=== PATIENT | female | born 1955 | race Caucasian/White ===

== ENCOUNTER 2016-12-23 10:19 | Inpatient (IN) | payer MEDICARE, OTHER ==
[~2016-12-23] VITALS: Ht 165.1 cm; Wt 72.6 kg
[2016-12-23 10:40] VITALS: BP 125/78
--- NOTE | 2016-12-23 11:24 | NUR ---
Pt arrived on unit via gurney accompanied by EMS staff and . Dx: Dementia w BD. Per , pt is deaf and uses a white board to communicate. Pt calm, smiling. Belongings inventoried and VS taken. given tour of unit. Pt currently sitting quietly in wc in dayroom. Will continue to monitor.
[2016-12-23] MEDS ORDERED: MAG HYDROX/AL HYDROX/SIMETH 30 ML ORAL.SUSP PO PRN (11:30)
[2016-12-23] MEDS ORDERED: ACETAMINOPHEN 325 MG TABLET PO PRN (11:30)
[2016-12-23] MEDS ORDERED: METHYL SALICYLATE/MENTHOL TOPICAL OINTMENT 29GM TUBE. TP PRN (11:30)
[2016-12-23] MEDS ORDERED: MAGNESIUM HYDROXIDE 2,400 MG/30 ML ORAL.SUSP. PO PRN (11:30)
[2016-12-23] MEDS ORDERED: LORazepam 0.5 MG TABLET PO PRN (12:30)
--- NOTE | 2016-12-23 13:00 | NUR ---
SW met with pt one on one in hallway, SW used a white board to communicate pt was crying uncontrollably. She able to answer questions, however states its 2013, and she was in a custodial. SW corrected her to see if that would help pt, however it did not and pt was very upset and tearful throughout. Pt at one point wheeled past SW and kept going down the ibrahim in her wheelchair.
[2016-12-23] MEDS ORDERED: LORA0.5T PO (13:14)
[2016-12-23] MEDS ORDERED: DEXT1CAP PO (13:14)
[2016-12-23] MEDS ORDERED: MAGN400T3 PO (13:14)
[2016-12-23] MEDS ORDERED: QUET25TA5 PO (13:14)
[2016-12-23] MEDS ORDERED: CEPH500T PO (13:14)
[2016-12-23] MEDS ORDERED: LACO200T PO (13:14)
[2016-12-23] MEDS ORDERED: ESCI20TA PO (13:14)
[2016-12-23] MEDS ORDERED: LEVO125T5 PO (13:14)
[2016-12-23] MEDS ORDERED: OXYB5TAB7 PO (13:14)
[2016-12-23] MEDS ORDERED: QUET50TA5 PO (13:14)
[2016-12-23] MEDS ORDERED: DANT25CA PO (13:14)
[2016-12-23] MEDS ORDERED: CYAN10005 PO (13:14)
[2016-12-23] MEDS ORDERED: ASPI-630 PO (13:14)
[2016-12-23] MEDS ORDERED: LAMO100T PO (13:14)
[2016-12-23] MEDS ORDERED: LOSA1TAB18 PO (13:14)
[2016-12-23] MEDS ORDERED: POTA10CA PO (13:14)
[2016-12-23] MEDS ORDERED: DILT240C2 PO (13:14)
[2016-12-23] MEDS ORDERED: ATOR10TA60 PO (13:14)
[2016-12-23 14:49] LABS: BASO % 0 % (0-3); EOS # 0.2 x10^3/uL (0.0-0.7); EOS % 2 % (0-3); HEMATOCRIT 38.5 % (36.0-47.0); HEMOGLOBIN 12.8 g/dL (12.0-15.5); LYMPH # 0.7 x10^3/uL (1.0-4.8); LYMPH % 10 % (24-48); MEAN CORPUSCULAR HEMOGLOBIN 31 pg (25-35); MEAN CORPUSCULAR HGB CONC 33 g/dL (31-37); MEAN CORPUSCULAR VOLUME 93 fL (79-100); MONO # 0.4 x10^3/uL (0.0-1.1); MONO % 6 % (0-9); NEUT # 5.8 x10^3uL (1.8-7.7); NEUT % 81 % (31-73); PLATELET COUNT 193 x10^3/uL (140-400); RED BLOOD COUNT 4.14 x10^6/uL (3.50-5.40); RED CELL DISTRIBUTION WIDTH 14.5 % (11.5-14.5); WHITE BLOOD COUNT 7.2 x10^3/uL (4.0-11.0)
[2016-12-23 14:55] LABS: ALBUMIN 3.6 g/dL (3.4-5.0); CALCIUM 9.3 mg/dL (8.5-10.1); MAGNESIUM 2.1 mg/dL (1.8-2.4); POTASSIUM 3.9 mmol/L (3.5-5.1); TOTAL BILIRUBIN 0.3 mg/dL (0.2-1.0); TOTAL PROTEIN 7.3 g/dL (6.4-8.2)
[2016-12-23 15:29] VITALS: BP 141/82
--- NOTE | 2016-12-23 15:36 | NUR ---
Joshua GALLAGHER called [facility] as SW rec'd e mail from Registration stating pt Primary insurance is [facility]. AILEEN called and spent and hour and half on phone with Sanna. Facility out of network, AILEEN faxed information to [facility] at [phone] spoke with Ary [phone] at [facility]. Pt meets criteria per Sanna. AILEEN called pt he is not working Medicare primary for both him and pt. AILEEN called [facility] back and spoke with Clinical rep Radha reports no auth or notification needed when [facility] is secondary, they are unable to tell if secondary unless pt has Both Medicare and secondary through their insurance. Per her no auth needed, and note was noted in their system. AILEEN called back, he would like to talk about billing AILEEN called billing [id number] no one answered AILEEN called x 2. AILEEN called pt back informed him of this. AILEEN suggested pt call his insurance regarding billing questions. AILEEN gave pt contact information for main number to call if he had any further questions.
[2016-12-23] MEDS: CEPHALEXIN 500 MG CAPSULE PO SCH ×2 (16:10→20:31)
[2016-12-23] MEDS: DANTROLENE SODIUM 25 MG CAPSULE PO SCH ×2 (16:10→20:37)
[2016-12-23] MEDS: OXYBUTYNIN CHLORIDE 5 MG TABLET PO SCH (20:31)
[2016-12-23] MEDS: QUEtiapine 50 MG TABLET. PO SCH (20:31)
[2016-12-23] MEDS: ATORVASTATIN CALCIUM 10 MG TABLET. PO SCH (20:31)
[2016-12-23] MEDS: LACOSAMIDE 50 MG TABLET PO SCH (20:31)
[2016-12-23] MEDS: lamoTRIgine 100 MG TABLET. PO SCH (20:31)
[2016-12-23] MEDS: POTASSIUM CHLORIDE 10 MEQ CAPSULE.ER. PO SCH (20:31)
[2016-12-23] MEDS: DEXTROMETHORPHAN HBR/QUINIDINE 1 CAPSULE. PO SCH (20:37)
--- NOTE | 2016-12-23 20:59 | PDOC ---
Exam Scott Demential Exam: Scott Note: Please also refer to the separate dictated note~for this date of service dictated separately.~Patient seen individually. Discussed the patient with Nursing staff reviewed the chart.~Reviewed interim history and current functioning. Reviewed vital signs,~Labs/ Radiology~and current medications noted below. Continue current treatment with the changes noted in the dictated addendum note Assessment: Vital Signs: Vital Signs Date Time Temp Pulse Resp B/P (MAP) Pulse Ox O2 Delivery O2 Flow Rate FiO2 12/23/16 15:29 98.3 68 20 141/82 (101) 99 12/23/16 10:40 Room Air Labs: Laboratory Tests Test 12/23/16 14:25 White Blood Count 7.2 x10^3/uL (4.0-11.0) Red Blood Count 4.14 x10^6/uL (3.50-5.40) Hemoglobin 12.8 g/dL (12.0-15.5) Hematocrit 38.5 % (36.0-47.0) Mean Corpuscular Volume 93 fL (79-100) Mean Corpuscular Hemoglobin 31 pg (25-35) Mean Corpuscular Hemoglobin Concent 33 g/dL (31-37) Red Cell Distribution Width 14.5 % (11.5-14.5) Platelet Count 193 x10^3/uL (140-400) Neutrophils (%) (Auto) 81 % (31-73) H Lymphocytes (%) (Auto) 10 % (24-48) L Monocytes (%) (Auto) 6 % (0-9) Eosinophils (%) (Auto) 2 % (0-3) Basophils (%) (Auto) 0 % (0-3) Neutrophils # (Auto) 5.8 x10^3uL (1.8-7.7) Lymphocytes # (Auto) 0.7 x10^3/uL (1.0-4.8) L Monocytes # (Auto) 0.4 x10^3/uL (0.0-1.1) Eosinophils # (Auto) 0.2 x10^3/uL (0.0-0.7) Basophils # (Auto) 0.0 x10^3/uL (0.0-0.2) Sodium Level 142 mmol/L (136-145) Potassium Level 3.9 mmol/L (3.5-5.1) Chloride Level 106 mmol/L (98-107) Carbon Dioxide Level 28 mmol/L (21-32) Anion Gap 8 (6-14) Blood Urea Nitrogen 21 mg/dL (7-20) H Creatinine 1.0 mg/dL (0.6-1.0) Estimated GFR (Cockcroft-Gault) 56.0 BUN/Creatinine Ratio 21 (6-20) H Glucose Level 128 mg/dL (70-99) H Calcium Level 9.3 mg/dL (8.5-10.1) Magnesium Level 2.1 mg/dL (1.8-2.4) Total Bilirubin 0.3 mg/dL (0.2-1.0) Aspartate Amino Transferase (AST) 19 U/L (15-37) Alanine Aminotransferase (ALT) 22 U/L (14-59) Alkaline Phosphatase 171 U/L (46-116) H Total Protein 7.3 g/dL (6.4-8.2) Albumin 3.6 g/dL (3.4-5.0) Albumin/Globulin Ratio 1.0 (1.0-1.7) Current Medications: Meds: Current Medications Acetaminophen (Tylenol) 650 mg PRN Q6HRS PRN PO PAIN / TEMP; Start 12/23/16 at 11:30 Multi-Ingredient Ointment (Analgesic [place]) 1 rosie PRN QID PRN TP MUSCLE PAIN; Start 12/23/16 at 11:30 Al Hydroxide/Mg Hydroxide (Mylanta Plus Xs) 15 ml PRN AFTMEALHC PRN PO DYSPEPSIA; Start 12/23/16 at 11:30 Magnesium Hydroxide (Milk Of Magnesia) 2,400 mg PRN QHS PRN PO CONSTIPATION; Start 12/23/16 at 11:30 Aspirin (Children'S Aspirin) 81 mg DAILY PO ; Start 12/24/16 at 09:00 Atorvastatin Calcium (Lipitor) 10 mg QHS PO Last administered on 12/23/16t 20: 31; Start 12/23/16 at 21:00 Cyanocobalamin (Vitamin B-12) 1,000 mcg DAILY PO ; Start 12/24/16 at 09:00 Diltiazem HCl (Cardizem 24hr Cd) 240 mg DAILY PO ; Start 12/24/16 at 09:00 Escitalopram Oxalate (Lexapro) 20 mg DAILY PO ; Start 12/24/16 at 09:00 Lamotrigine (LaMICtal) 100 mg BID PO Last administered on 12/23/16 20:31; Start 12/23/16 at 21:00 Levothyroxine Sodium (Synthroid) 125 mcg DAILYAC PO ; Start 12/24/16 at 07:30 Lorazepam (Ativan) 0.5 mg PRN TID PRN PO ANXIETY / AGITATION; Start 12/23/16 at 12:30 Magnesium Oxide (Magnesium Oxide) 400 mg DAILY PO ; Start 12/24/16 at 09:00 Oxybutynin Chloride (Ditropan) 5 mg QHS PO Last administered on 12/23/16 20:31 ; Start 12/23/16 at 21:00 Potassium Chloride (Micro-K) 10 meq BID PO Last administered on 12/23/16 20:31 ; Start 12/23/16 at 21:00 Quetiapine Fumarate (SEROquel) 25 mg DAILY PO ; Start 12/24/16 at 09:00 Quetiapine Fumarate (SEROquel) 50 mg QHS PO Last administered on 12/23/16 20: 31; Start 12/23/16 at 21:00 Cephalexin HCl (Keflex) 500 mg QID PO Last administered on 12/23/16 20:31; Start 12/23/16 at 17:00 Dantrolene Sodium (Dantrium) 25 mg TID PO Last administered on 12/23/16 20:37 ; Start 12/23/16 at 14:00 Lacosamide (Vimpat) 200 mg BID PO Last administered on 12/23/16 20:31; Start 12/23/16 at 21:00 Losartan Potassium (Cozaar) 100 mg DAILY PO ; Start 12/24/16 at 09:00 Hydrochlorothiazide (Microzide) 12.5 mg DAILY PO ; Start 12/24/16 at 09:00 Active Scripts Active Reported Lorazepam 0.5 Mg Tablet 0.5 Mg PO PRN TID PRN Cephalexin 500 Mg Tablet 500 Mg PO QID Losartan-Hctz 100-12.5 Mg Tab (Losartan/Hydrochlorothiazide) 1 Each Tablet 1 Each PO DAILY Seroquel (Quetiapine Fumarate) 50 Mg Tablet 50 Mg PO QHS Seroquel (Quetiapine Fumarate) 25 Mg Tablet 25 Mg PO DAILY Nuedexta 20-10 Mg Capsule (Dextromethorphan Hbr/Quinidine) 1 Each Capsule 1 Each PO BID Vimpat (Lacosamide) 200 Mg Tablet 200 Mg PO BID Levothyroxine Sodium 125 Mcg Tablet 125 Mcg PO DAILYAC Dantrolene Sodium 25 Mg Capsule 25 Mg PO TID Vitamin B-12 (Cyanocobalamin (Vitamin B-12)) 1,000 Mcg Tablet 1,000 Mcg PO DAILY Lamotrigine 100 Mg Tablet 100 Mg PO BID Escitalopram Oxalate 20 Mg Tablet 20 Mg PO DAILY Cardizem Cd (Diltiazem Hcl) 240 Mg Cap.er.24h 240 Mg PO DAILY x7days start 12/22/16 1650 Magnesium Oxide 400 Mg Tablet 400 Mg PO DAILY Potassium Chloride 10 Meq Capsule.er 10 Meq PO BID Aspirin 81 Mg Tab.chew 81 Mg PO DAILY Oxybutynin Chloride 5 Mg Tablet 5 Mg PO QHS Atorvastatin Calcium 10 Mg Tablet 10 Mg PO QHS MIKEY RUBY MD December 23, 2016 20:58
--- NOTE | 2016-12-23 21:20 | NUR ---
Behavior Intervention Response and Plan: BIRP Note: Behavior: Assumed Care of patient, patient located in Hallway at shift change. Patient exhibited the following behavior Wandering, Exit Seeking, Anxious. Brief assessment on rounds of vital signs, medication needs, lab studies, and pain. Treatment plan problems 1-2. Intervention: Patient assessed and the following interventions initiated safety checks 15 Minute Checks Head to toe Assessment , Cognitive Assessment , Medications. Response: After interactions and interventions patient responded in the following manner, Disorganized , Delusions ,Compliant. Continue to assess behaviors and condition will continue to monitor throughout the shift as needed. 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 Continue to assess patient for changes in above assessment. Monitor for medication needs, pain, and safety concerns. Hourly rounding performed to ensure safe environment.
[2016-12-24 02:11] LABS: T3 TOTAL 78 ng/dL (71-180); THYROXINE 6.7 ug/dL (4.5-12.0)
[2016-12-24 06:20] VITALS: BP 141/83
[2016-12-24 07:49] LABS: VAL ACID < 3 mcg/mL (50-100)
[2016-12-24] MEDS: hydroCHLOROthiazide 12.5 MG CAPSULE PO SCH (08:07)
[2016-12-24] MEDS: ASPIRIN 81 MG TAB.CHEW PO SCH (08:07)
[2016-12-24] MEDS: lamoTRIgine 100 MG TABLET. PO SCH ×2 (08:07→21:37)
[2016-12-24] MEDS: CYANOCOBALAMIN (VITAMIN B-12) 1,000 MCG TABLET. PO SCH (08:08)
[2016-12-24] MEDS: LOSARTAN 50 MG TABLET. PO SCH (08:08)
[2016-12-24] MEDS: LEVOTHYROXINE 125 MCG TABLET PO SCH (08:08)
[2016-12-24] MEDS: POTASSIUM CHLORIDE 10 MEQ CAPSULE.ER. PO SCH ×2 (08:08→21:36)
[2016-12-24] MEDS: CEPHALEXIN 500 MG CAPSULE PO SCH ×4 (08:08→21:35)
[2016-12-24] MEDS: ESCITALOPRAM 20 MG TABLET. PO SCH (08:09)
[2016-12-24] MEDS: QUEtiapine 25 MG TABLET. PO SCH (08:09)
[2016-12-24] MEDS: LACOSAMIDE 50 MG TABLET PO SCH ×2 (08:09→21:44)
[2016-12-24] MEDS: MAGNESIUM OXIDE 400 MG TABLET PO SCH (08:09)
[2016-12-24] MEDS: DEXTROMETHORPHAN HBR/QUINIDINE 1 CAPSULE. PO SCH ×2 (08:11→21:39)
[2016-12-24] MEDS: DANTROLENE SODIUM 25 MG CAPSULE PO SCH ×3 (08:11→21:39)
[2016-12-24 10:34] LABS: THYROID STIM HORMONE (TSH) 1.462 uIU/mL (0.358-3.740)
--- NOTE | 2016-12-24 11:28 | NUR ---
Behavior Intervention Response and Plan: BIRP Note: Behavior: Assumed Care of patient, patient located in Dining Room at shift change. Patient exhibited the following behavior Wandering, Restless, Compliant. Brief assessment on rounds of vital signs, medication needs, lab studies, and pain. Treatment plan problems . Intervention: Patient assessed and the following interventions initiated safety checks 15 Minute Checks Head to toe Assessment , Medications , Cognitive Assessment. Response: After interactions and interventions patient responded in the following manner, Calm , Cooperative ,Compliant. Continue to assess behaviors and condition will continue to monitor throughout the shift as needed. Plan: Continue to monitor Master Treatment Plan for patient's progress toward short term goals of Decreased Anxiety, Improved Mood, prison goals to return to previous living setting vs placement. Continue to assess patient for changes in above assessment. Monitor for medication needs, pain, and safety concerns. Hourly rounding performed to ensure safe environment.
[2016-12-24 15:58] VITALS: BP 124/74
--- NOTE | 2016-12-24 20:46 | PDOC ---
Exam Scott Demential Exam: Scott Note: Please also refer to the separate dictated note~for this date of service dictated separately.~Patient seen individually. Discussed the patient with Nursing staff reviewed the chart.~Reviewed interim history and current functioning. Reviewed vital signs,~Labs/ Radiology~and current medications noted below. Continue current treatment with the changes noted in the dictated addendum note Assessment: Vital Signs: Vital Signs Date Time Temp Pulse Resp B/P (MAP) Pulse Ox O2 Delivery O2 Flow Rate FiO2 12/24/16 15:58 97.6 71 20 124/74 (91) 99 12/23/16 10:40 Room Air I&O Intake and Output 12/24/16 07:00 Intake Total 960 ml Balance 960 ml Intake Oral 960 ml # Bowel Movements 2 Labs: Laboratory Tests Test 12/24/16 06:22 Valproic Acid Level < 3 mcg/mL (50-100) L Valproic Acid Last Dose Date 12/23/2016 Valproic Acid Last Dose Time 2100 Current Medications: Meds: Current Medications Acetaminophen (Tylenol) 650 mg PRN Q6HRS PRN PO PAIN / TEMP; Start 12/23/16 at 11:30 Multi-Ingredient Ointment (Analgesic [place]) 1 rosie PRN QID PRN TP MUSCLE PAIN; Start 12/23/16 at 11:30 Al Hydroxide/Mg Hydroxide (Mylanta Plus Xs) 15 ml PRN AFTMEALHC PRN PO DYSPEPSIA; Start 12/23/16 at 11:30 Magnesium Hydroxide (Milk Of Magnesia) 2,400 mg PRN QHS PRN PO CONSTIPATION; Start 12/23/16 at 11:30 Aspirin (Children'S Aspirin) 81 mg DAILY PO Last administered on 12/24/16 08: 07; Start 12/24/16 at 09:00 Atorvastatin Calcium (Lipitor) 10 mg QHS PO Last administered on 12/23/16 20: 31; Start 12/23/16 at 21:00 Cyanocobalamin (Vitamin B-12) 1,000 mcg DAILY PO Last administered on 08:08; Start 12/24/16 at 09:00 Diltiazem HCl (Cardizem 24hr Cd) 240 mg DAILY PO Last administered on 08:08; Start 12/24/16 at 09:00 Escitalopram Oxalate (Lexapro) 20 mg DAILY PO Last administered on 12/24/16 08 :09; Start 12/24/16 at 09:00 Lamotrigine (LaMICtal) 100 mg BID PO Last administered on 12/24/16 08:07; Start 12/23/16 at 21:00 Levothyroxine Sodium (Synthroid) 125 mcg DAILYAC PO Last administered on 08:08; Start 12/24/16 at 07:30 Lorazepam (Ativan) 0.5 mg PRN TID PRN PO ANXIETY / AGITATION; Start 12/23/16 at 12:30 Magnesium Oxide (Magnesium Oxide) 400 mg DAILY PO Last administered on 08:09; Start 12/24/16 at 09:00 Oxybutynin Chloride (Ditropan) 5 mg QHS PO Last administered on 12/23/16 20:31 ; Start 12/23/16 at 21:00 Potassium Chloride (Micro-K) 10 meq BID PO Last administered on 12/24/16 08:08 ; Start 12/23/16 at 21:00 Quetiapine Fumarate (SEROquel) 25 mg DAILY PO Last administered on 12/24/16 08 :09; Start 12/24/16 at 09:00 Quetiapine Fumarate (SEROquel) 50 mg QHS PO Last administered on 12/23/16 20: 31; Start 12/23/16 at 21:00 Cephalexin HCl (Keflex) 500 mg QID PO Last administered on 12/24/16 16:36; Start 12/23/16 at 17:00 Dantrolene Sodium (Dantrium) 25 mg TID PO Last administered on 12/24/16 13:15 ; Start 12/23/16 at 14:00 Lacosamide (Vimpat) 200 mg BID PO Last administered on 12/24/16 08:09; Start 12/23/16 at 21:00 Losartan Potassium (Cozaar) 100 mg DAILY PO Last administered on 12/24/16 08: 08; Start 12/24/16 at 09:00 Hydrochlorothiazide (Microzide) 12.5 mg DAILY PO Last administered on 08:07; Start 12/24/16 at 09:00 Active Scripts Active Reported Lorazepam 0.5 Mg Tablet 0.5 Mg PO PRN TID PRN Cephalexin 500 Mg Tablet 500 Mg PO QID Losartan-Hctz 100-12.5 Mg Tab (Losartan/Hydrochlorothiazide) 1 Each Tablet 1 Each PO DAILY Seroquel (Quetiapine Fumarate) 50 Mg Tablet 50 Mg PO QHS Seroquel (Quetiapine Fumarate) 25 Mg Tablet 25 Mg PO DAILY Nuedexta 20-10 Mg Capsule (Dextromethorphan Hbr/Quinidine) 1 Each Capsule 1 Each PO BID Vimpat (Lacosamide) 200 Mg Tablet 200 Mg PO BID Levothyroxine Sodium 125 Mcg Tablet 125 Mcg PO DAILYAC Dantrolene Sodium 25 Mg Capsule 25 Mg PO TID Vitamin B-12 (Cyanocobalamin (Vitamin B-12)) 1,000 Mcg Tablet 1,000 Mcg PO DAILY Lamotrigine 100 Mg Tablet 100 Mg PO BID Escitalopram Oxalate 20 Mg Tablet 20 Mg PO DAILY Cardizem Cd (Diltiazem Hcl) 240 Mg Cap.er.24h 240 Mg PO DAILY x7days start 12/22/16 1650 Magnesium Oxide 400 Mg Tablet 400 Mg PO DAILY Potassium Chloride 10 Meq Capsule.er 10 Meq PO BID Aspirin 81 Mg Tab.chew 81 Mg PO DAILY Oxybutynin Chloride 5 Mg Tablet 5 Mg PO QHS Atorvastatin Calcium 10 Mg Tablet 10 Mg PO QHS MIKEY RUBY MD December 24, 2016 20:46
[2016-12-24] MEDS: QUEtiapine 50 MG TABLET. PO SCH (21:35)
[2016-12-24] MEDS: OXYBUTYNIN CHLORIDE 5 MG TABLET PO SCH (21:35)
[2016-12-24] MEDS: ATORVASTATIN CALCIUM 10 MG TABLET. PO SCH (21:35)
--- NOTE | 2016-12-25 01:53 | NUR ---
Behavior Intervention Response and Plan: BIRP Note: Behavior: Assumed Care of patient, patient located in Patient Room at shift change. Patient exhibited the following behavior Calm, Cooperative, Compliant. Brief assessment on rounds of vital signs, medication needs, lab studies, and pain. Treatment plan problems . Intervention: Patient assessed and the following interventions initiated safety checks 15 Minute Checks Call pierre in reach , Medications , Nutrition. Response: After interactions and interventions patient responded in the following manner, Calm , Disorganized ,Compliant. Continue to assess behaviors and condition will continue to monitor throughout the shift as needed. Plan: Continue to monitor Master Treatment Plan for patient's progress toward short term goals of Decreased Agitation, Decreased Anxiety, longterm goals to return to previous living setting vs placement. Continue to assess patient for changes in above assessment. Monitor for medication needs, pain, and safety concerns. Hourly rounding performed to ensure safe environment.
--- NOTE | 2016-12-25 04:16 | PDOC1 ---
History of Present Illness Reason for Visit: Unstable mood History of Present Illness This is a late entry from 12/24/16, pt was seen at 1150 AM on rounds w/ nursing staff. She is a poor historian and can communicate by reading lips and writing on a white board. She was sent here from her home for evaluation in the geropsych unit due to unstable moods, crying, and hallucinations. 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 She also has hypertension, multiple sclerosis, and a CVA per the record. There are no complaints reported today, and nursing staff does not voice any concerns. Chief Complaint: Mood changes Allergies: Coded Allergies: Sulfa (Sulfonamide Antibiotics) (Verified Allergy, Unknown, 12/23/16) Past Medical History Cardiac: HTN COLLAR SEWER: CVA (Also seizure d/o and dementia) Psych: Depression, Other (Clinical deafness due to meningitis; MS) Past Surgical History: No pertinent history Family History: No pertinent hx Past Social History Smoke: No Alcohol: none Drugs: None Lives: with Family Review of Systems Review Of Systems ROS unobtainable due to pt's mental status Allergies: Coded Allergies: Sulfa (Sulfonamide Antibiotics) (Verified Allergy, Unknown, 12/23/16) Medications Current Medications Acetaminophen (Tylenol) 650 mg PRN Q6HRS PRN PO PAIN / TEMP; Start 12/23/16 at 11:30 Multi-Ingredient Ointment (Analgesic [place]) 1 rosie PRN QID PRN TP MUSCLE PAIN; Start 12/23/16 at 11:30 Al Hydroxide/Mg Hydroxide (Mylanta Plus Xs) 15 ml PRN AFTMEALHC PRN PO DYSPEPSIA; Start 12/23/16 at 11:30 Magnesium Hydroxide (Milk Of Magnesia) 2,400 mg PRN QHS PRN PO CONSTIPATION; Start 12/23/16 at 11:30 Aspirin (Children'S Aspirin) 81 mg DAILY PO Last administered on 12/24/16 08: 07; Start 12/24/16 at 09:00 Atorvastatin Calcium (Lipitor) 10 mg QHS PO Last administered on 12/24/16 21: 35; Start 12/23/16 at 21:00 Cyanocobalamin (Vitamin B-12) 1,000 mcg DAILY PO Last administered on 08:08; Start 12/24/16 at 09:00 Diltiazem HCl (Cardizem 24hr Cd) 240 mg DAILY PO Last administered on 08:08; Start 12/24/16 at 09:00 Escitalopram Oxalate (Lexapro) 20 mg DAILY PO Last administered on 12/24/16 08 :09; Start 12/24/16 at 09:00 Lamotrigine (LaMICtal) 100 mg BID PO Last administered on 12/24/16 21:37; Start 12/23/16 at 21:00 Levothyroxine Sodium (Synthroid) 125 mcg DAILYAC PO Last administered on 08:08; Start 12/24/16 at 07:30 Lorazepam (Ativan) 0.5 mg PRN TID PRN PO ANXIETY / AGITATION; Start 12/23/16 at 12:30 Magnesium Oxide (Magnesium Oxide) 400 mg DAILY PO Last administered on 08:09; Start 12/24/16 at 09:00 Oxybutynin Chloride (Ditropan) 5 mg QHS PO Last administered on 12/24/16 21:35 ; Start 12/23/16 at 21:00 Potassium Chloride (Micro-K) 10 meq BID PO Last administered on 12/24/16 21:36 ; Start 12/23/16 at 21:00 Quetiapine Fumarate (SEROquel) 25 mg DAILY PO Last administered on 12/24/16 08 :09; Start 12/24/16 at 09:00 Quetiapine Fumarate (SEROquel) 50 mg QHS PO Last administered on 12/24/16 21: 35; Start 12/23/16 at 21:00 Cephalexin HCl (Keflex) 500 mg QID PO Last administered on 12/24/16 21:35; Start 12/23/16 at 17:00 Dantrolene Sodium (Dantrium) 25 mg TID PO Last administered on 12/24/16 21:39 ; Start 12/23/16 at 14:00 Lacosamide (Vimpat) 200 mg BID PO Last administered on 12/24/16 21:44; Start 12/23/16 at 21:00 Losartan Potassium (Cozaar) 100 mg DAILY PO Last administered on 12/24/16 08: 08; Start 12/24/16 at 09:00 Hydrochlorothiazide (Microzide) 12.5 mg DAILY PO Last administered on 08:07; Start 12/24/16 at 09:00 Active Scripts Active Reported Lorazepam 0.5 Mg Tablet 0.5 Mg PO PRN TID PRN Cephalexin 500 Mg Tablet 500 Mg PO QID Losartan-Hctz 100-12.5 Mg Tab (Losartan/Hydrochlorothiazide) 1 Each Tablet 1 Each PO DAILY Seroquel (Quetiapine Fumarate) 50 Mg Tablet 50 Mg PO QHS Seroquel (Quetiapine Fumarate) 25 Mg Tablet 25 Mg PO DAILY Nuedexta 20-10 Mg Capsule (Dextromethorphan Hbr/Quinidine) 1 Each Capsule 1 Each PO BID Vimpat (Lacosamide) 200 Mg Tablet 200 Mg PO BID Levothyroxine Sodium 125 Mcg Tablet 125 Mcg PO DAILYAC Dantrolene Sodium 25 Mg Capsule 25 Mg PO TID Vitamin B-12 (Cyanocobalamin (Vitamin B-12)) 1,000 Mcg Tablet 1,000 Mcg PO DAILY Lamotrigine 100 Mg Tablet 100 Mg PO BID Escitalopram Oxalate 20 Mg Tablet 20 Mg PO DAILY Cardizem Cd (Diltiazem Hcl) 240 Mg Cap.er.24h 240 Mg PO DAILY x7days start 12/22/16 1650 Magnesium Oxide 400 Mg Tablet 400 Mg PO DAILY Potassium Chloride 10 Meq Capsule.er 10 Meq PO BID Aspirin 81 Mg Tab.chew 81 Mg PO DAILY Oxybutynin Chloride 5 Mg Tablet 5 Mg PO QHS Atorvastatin Calcium 10 Mg Tablet 10 Mg PO QHS Exam Vital Signs Vital Signs Date Time Temp Pulse Resp B/P (MAP) Pulse Ox O2 Delivery O2 Flow Rate FiO2 12/24/16 15:58 97.6 71 20 124/74 (91) 99 12/23/16 10:40 Room Air General Appearance: Alert, Cooperative, No acute distress HEENT: Atraumatic, PERRLA, EOMI, Mucous membr. moist/pink, Other (Deaf, neck supple, no JVD or LAD) Respiratory: Clear to auscultation, Normal air movement Heart: Regular rate, Normal S1, Normal S2, No murmurs Abdominal: Soft, No tenderness, No hepatospenomegaly Extremities: No edema, Normal pulses Skin: No rashes Neuro: Normal tone, Cranial nerves 3-12 NL, Reflexes 2+ Psych/Mental Status: Other (Pt w/ flat affect, no smiles.) Assessment/Plan Assessment/Plan 1. Depression and dementia w/ behavioral disturbances: Per Dr. Workman. 2. Hx of seizure d/o: Cont home meds, seizure precautions. 3. HTN: Monitor BP, continue home meds. 4. Elevated alk phos (on initial labs): Etiology unclear, pt should have this f/u as an outpatient. 5. DVT proph: Pt able to wheel herself around, risk of DVT is low as she uses her legs. If pt becomes immobilized or bedbound we will need to start SQ heparin. COURSE Allergies Coded Allergies Type Severity Reaction Last Updated Verified Sulfa (Sulfonamide Antibiotics) Allergy Unknown 12/23/16 Yes Laboratory Tests Test 12/24/16 06:22 Valproic Acid (Depakene) Level < 3 mcg/mL (50-100) Valproic Acid Last Dose Date 12/23/2016 Valproic Acid Last Dose Time 2100 Current Medications Medications (Trade) Dose Ordered Sig/Jennifer Route PRN Reason Start Time Stop Time Status Last Admin Dose Admin Aspirin (Children'S Aspirin) 81 mg DAILY PO 12/24/16 09:00 12/24/16 08:07 Cyanocobalamin (Vitamin B-12) 1,000 mcg DAILY PO 12/24/16 09:00 12/24/16 08:08 Diltiazem HCl (Cardizem 24hr Cd) 240 mg DAILY PO 12/24/16 09:00 12/24/16 08:08 Escitalopram Oxalate (Lexapro) 20 mg DAILY PO 12/24/16 09:00 12/24/16 08:09 Levothyroxine Sodium (Synthroid) 125 mcg DAILYAC PO 12/24/16 07:30 12/24/16 08:08 Magnesium Oxide (Magnesium Oxide) 400 mg DAILY PO 12/24/16 09:00 12/24/16 08:09 Quetiapine Fumarate (SEROquel) 25 mg DAILY PO 12/24/16 09:00 12/24/16 08:09 Losartan Potassium (Cozaar) 100 mg DAILY PO 12/24/16 09:00 12/24/16 08:08 Hydrochlorothiazide (Microzide) 12.5 mg DAILY PO 12/24/16 09:00 12/24/16 08:07 I & O 12/25/16 00:00 Intake Total 360 ml Balance 360 ml Vital Signs Date Time Temp Pulse Resp B/P (MAP) Pulse Ox O2 Delivery O2 Flow Rate FiO2 12/24/16 15:58 97.6 71 20 124/74 (91) 99 12/23/16 10:40 Room Air STANISLAW BALDERAS MD December 25, 2016 04:16
[2016-12-25 06:29] VITALS: BP 132/75
[2016-12-25] MEDS: LOSARTAN 50 MG TABLET. PO SCH (07:53)
[2016-12-25] MEDS: DANTROLENE SODIUM 25 MG CAPSULE PO SCH ×3 (07:54→21:46)
[2016-12-25] MEDS: CEPHALEXIN 500 MG CAPSULE PO SCH ×4 (07:54→21:43)
[2016-12-25] MEDS: ESCITALOPRAM 20 MG TABLET. PO SCH (07:54)
[2016-12-25] MEDS: lamoTRIgine 100 MG TABLET. PO SCH (07:54)
[2016-12-25] MEDS: hydroCHLOROthiazide 12.5 MG CAPSULE PO SCH (07:54)
[2016-12-25] MEDS: CYANOCOBALAMIN (VITAMIN B-12) 1,000 MCG TABLET. PO SCH (07:54)
[2016-12-25] MEDS: MAGNESIUM OXIDE 400 MG TABLET PO SCH (07:55)
[2016-12-25] MEDS: QUEtiapine 25 MG TABLET. PO SCH ×2 (07:55→13:50)
[2016-12-25] MEDS: POTASSIUM CHLORIDE 10 MEQ CAPSULE.ER. PO SCH ×2 (07:55→21:43)
[2016-12-25] MEDS: DEXTROMETHORPHAN HBR/QUINIDINE 1 CAPSULE. PO SCH ×2 (07:55→21:45)
[2016-12-25] MEDS: ASPIRIN 81 MG TAB.CHEW PO SCH (07:55)
[2016-12-25] MEDS: LEVOTHYROXINE 125 MCG TABLET PO SCH (07:55)
[2016-12-25] MEDS: LACOSAMIDE 50 MG TABLET PO SCH ×2 (07:57→21:50)
--- NOTE | 2016-12-25 10:45 | NUR ---
Behavior Intervention Response and Plan: BIRP Note: Behavior: Assumed Care of patient, patient located in Patient Room at shift change. Patient exhibited the following behavior Disorganized, Interactive, Compliant. Brief assessment on rounds of vital signs, medication needs, lab studies, and pain. Treatment plan problems 1 & 2. Intervention: Patient assessed and the following interventions initiated safety checks 15 Minute Checks Cognitive Assessment , Head to toe Assessment , Medications. Response: After interactions and interventions patient responded in the following manner, Calm , Appropriate ,Compliant. Continue to assess behaviors and condition will continue to monitor throughout the shift as needed. Plan: Continue to monitor Master Treatment Plan for patient's progress toward short term goals of Decreased Agitation, Decreased Aggression, care home goals to return to previous living setting vs placement. Continue to assess patient for changes in above assessment. Monitor for medication needs, pain, and safety concerns. Hourly rounding performed to ensure safe environment.
--- NOTE | 2016-12-25 10:58 | HP ---
ADMIT DATE: 12/23/2016 PSYCHIATRIC ADMISSION HISTORY/EVALUATION This is a late entry for 12/23/2016. IDENTIFYING DATA: The patient is a 61-year-old female referred to us from [facility] where she presented from her home initially. The patient has a history of Alzheimer, vascular dementia and has had increased aggression recently, marked sundowning behaviors active visual hallucinations. 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 The patient's communication skills make her appear more confused than she truly is. Nevertheless her behaviors were unmanageable and she was referred to us for inpatient psychiatric stabilization. CHIEF COMPLAINT: "I need to go today." The patient has difficulty with her communication, but was able to express this. HISTORY OF PRESENT ILLNESS: The patient has been hospitalized with us here in the past, in March 2015, from [place], [place], referred by Dr. Macdonald for increased hallucinations, confusion. She was diagnosed with bipolar disorder with psychotic features, stabilized and did have a UTI, which was treated during that hospitalization as well. More recently reportedly, she has been living at home, but getting increasingly confused with marked sundowning, hallucinations, mood vacillation. She has had sleep and appetite changes. No active suicidal or homicidal ideation. She has had symptoms of pseudobulbar affect and was started on Nuedexta. PAST PSYCHIATRIC HISTORY: Positive for bipolar disorder with psychotic features, progressive confusion. History of bacterial meningitis leaving her with disability. PAST MEDICAL HISTORY: Hyperlipidemia, current UTI, hypertension, muscle spasms, hypothyroidism, seizure disorder. 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 CODE STATUS: DNR. ALLERGIES: SULFA. CURRENT PSYCHOTROPICS: Lexapro 20 mg a day, Lamictal 25 mg b.i.d. Nuedexta 1 capsule b.i.d. FAMILY HISTORY: Noncontributory. SOCIAL HISTORY: No history of alcohol, drug abuse, or physical, sexual or elder abuse. She is not known to be a perpetrator. MENTAL STATUS EXAM: The patient was seen individually evening of 12/23/2016. She is in a wheelchair. Has difficulty communicating as noted above. Speech, difficult to understand. Abstraction fair, computation impaired, language function intact. Memory is impaired. No active suicidal or homicidal ideation. She appears intermittently psychotic. PHYSICAL EXAMINATION: VITAL SIGNS: Noted in my initial note. IMPRESSION: Bipolar 1 disorder, mixed with history of psychotic features in partial remission; anxiety disorder, unspecified; impulse control disorder, unspecified; cognitive disorder, unspecified versus major neurocognitive disorder, early vascular with delusions, current urinary tract infection. Rest of diagnoses as above. PLAN: Continue current psychotropics. I will admit to Geropsychiatry unit. I will see the patient daily individually from a psychiatric standpoint and medical followup with Dr. Larkin/Dr. Flood. We will make further adjustments in her psychotropics depending on what symptoms remain problematic post-resolution of UTI. MAN Dariana RUBY MD DR: ANKIT/nts JOB#: [id number] / [id number]
[2016-12-25 16:16] VITALS: BP 114/70
--- NOTE | 2016-12-25 20:06 | PDOC ---
Exam Scott Demential Exam: Scott Note: Please also refer to the separate dictated note~for this date of service dictated separately.~Patient seen individually. Discussed the patient with Nursing staff reviewed the chart.~Reviewed interim history and current functioning. Reviewed vital signs,~Labs/ Radiology~and current medications noted below. Continue current treatment with the changes noted in the dictated addendum note Assessment: Vital Signs: Vital Signs Date Time Temp Pulse Resp B/P (MAP) Pulse Ox O2 Delivery O2 Flow Rate FiO2 12/25/16 16:16 98.6 64 18 114/70 (85) 98 12/23/16 10:40 Room Air I&O Intake and Output 12/25/16 07:00 Intake Total 480 ml Balance 480 ml Intake Oral 480 ml # Bowel Movements 1 Current Medications: Meds: Current Medications Acetaminophen (Tylenol) 650 mg PRN Q6HRS PRN PO PAIN / TEMP; Start 12/23/16 at 11:30 Multi-Ingredient Ointment (Analgesic [place]) 1 rosie PRN QID PRN TP MUSCLE PAIN; Start 12/23/16 at 11:30 Al Hydroxide/Mg Hydroxide (Mylanta Plus Xs) 15 ml PRN AFTMEALHC PRN PO DYSPEPSIA; Start 12/23/16 at 11:30 Magnesium Hydroxide (Milk Of Magnesia) 2,400 mg PRN QHS PRN PO CONSTIPATION; Start 12/23/16 at 11:30 Aspirin (Children'S Aspirin) 81 mg DAILY PO Last administered on 12/25/16 07: 55; Start 12/24/16 at 09:00 Atorvastatin Calcium (Lipitor) 10 mg QHS PO Last administered on 12/24/16 21: 35; Start 12/23/16 at 21:00 Cyanocobalamin (Vitamin B-12) 1,000 mcg DAILY PO Last administered on 07:54; Start 12/24/16 at 09:00 Diltiazem HCl (Cardizem 24hr Cd) 240 mg DAILY PO Last administered on 07:55; Start 12/24/16 at 09:00 Escitalopram Oxalate (Lexapro) 20 mg DAILY PO Last administered on 12/25/16 07 :54; Start 12/24/16 at 09:00 Lamotrigine (LaMICtal) 100 mg BID PO Last administered on 12/25/16 07:54; Start 12/23/16 at 21:00; Stop 12/25/16 at 18:38; Status DC Levothyroxine Sodium (Synthroid) 125 mcg DAILYAC PO Last administered on 07:55; Start 12/24/16 at 07:30 Lorazepam (Ativan) 0.5 mg PRN TID PRN PO ANXIETY / AGITATION; Start 12/23/16 at 12:30 Magnesium Oxide (Magnesium Oxide) 400 mg DAILY PO Last administered on 07:55; Start 12/24/16 at 09:00 Oxybutynin Chloride (Ditropan) 5 mg QHS PO Last administered on 12/24/16 21:35 ; Start 12/23/16 at 21:00 Potassium Chloride (Micro-K) 10 meq BID PO Last administered on 12/25/16 07:55 ; Start 12/23/16 at 21:00 Quetiapine Fumarate (SEROquel) 25 mg DAILY PO Last administered on 12/25/16 07 :55; Start 12/24/16 at 09:00 Quetiapine Fumarate (SEROquel) 50 mg QHS PO Last administered on 12/24/16 21: 35; Start 12/23/16 at 21:00 Cephalexin HCl (Keflex) 500 mg QID PO Last administered on 12/25/16 17:11; Start 12/23/16 at 17:00 Dantrolene Sodium (Dantrium) 25 mg TID PO Last administered on 12/25/16 13:51 ; Start 12/23/16 at 14:00 Lacosamide (Vimpat) 200 mg BID PO Last administered on 12/25/16 07:57; Start 12/23/16 at 21:00 Losartan Potassium (Cozaar) 100 mg DAILY PO Last administered on 12/25/16 07: 53; Start 12/24/16 at 09:00 Hydrochlorothiazide (Microzide) 12.5 mg DAILY PO Last administered on 07:54; Start 12/24/16 at 09:00 Quetiapine Fumarate (SEROquel) 12.5 mg BID92 PO Last administered on 12/25/16 13:50; Start 12/25/16 at 14:00 Lamotrigine (LaMICtal) 100 mg DAILY PO ; Start 12/26/16 at 09:00 Lamotrigine (LaMICtal) 125 mg QHS PO ; Start 12/25/16 at 21:00 Active Scripts Active Reported Lorazepam 0.5 Mg Tablet 0.5 Mg PO PRN TID PRN Cephalexin 500 Mg Tablet 500 Mg PO QID Losartan-Hctz 100-12.5 Mg Tab (Losartan/Hydrochlorothiazide) 1 Each Tablet 1 Each PO DAILY Seroquel (Quetiapine Fumarate) 50 Mg Tablet 50 Mg PO QHS Seroquel (Quetiapine Fumarate) 25 Mg Tablet 25 Mg PO DAILY Nuedexta 20-10 Mg Capsule (Dextromethorphan Hbr/Quinidine) 1 Each Capsule 1 Each PO BID Vimpat (Lacosamide) 200 Mg Tablet 200 Mg PO BID Levothyroxine Sodium 125 Mcg Tablet 125 Mcg PO DAILYAC Dantrolene Sodium 25 Mg Capsule 25 Mg PO TID Vitamin B-12 (Cyanocobalamin (Vitamin B-12)) 1,000 Mcg Tablet 1,000 Mcg PO DAILY Lamotrigine 100 Mg Tablet 100 Mg PO BID Escitalopram Oxalate 20 Mg Tablet 20 Mg PO DAILY Cardizem Cd (Diltiazem Hcl) 240 Mg Cap.er.24h 240 Mg PO DAILY x7days start 12/22/16 1650 Magnesium Oxide 400 Mg Tablet 400 Mg PO DAILY Potassium Chloride 10 Meq Capsule.er 10 Meq PO BID Aspirin 81 Mg Tab.chew 81 Mg PO DAILY Oxybutynin Chloride 5 Mg Tablet 5 Mg PO QHS Atorvastatin Calcium 10 Mg Tablet 10 Mg PO QHS MIKEY RUBY MD December 25, 2016 20:06
[2016-12-25] MEDS ORDERED: lamoTRIgine 25 MG TABLET. PO SCH (21:00)
[2016-12-25] MEDS: QUEtiapine 50 MG TABLET. PO SCH (21:43)
[2016-12-25] MEDS: ATORVASTATIN CALCIUM 10 MG TABLET. PO SCH (21:44)
[2016-12-25] MEDS: OXYBUTYNIN CHLORIDE 5 MG TABLET PO SCH (21:44)
--- NOTE | 2016-12-26 | PN ---
DATE: 12/24/2016 PSYCHIATRIC PROGRESS NOTE This is a late entry 12/24/2016 covers the elements not covered in my initial note. SUBJECTIVE: Per nursing report, the patient remains oriented to herself only, but in fact questioned her, she was able to remember our visit the previous evening though I am not entirely sure of that. We will continue to assess this. She has been calm, cooperative with staff, less labile. REVIEW OF SYSTEMS: Ambulation impaired, difficulty expressing herself. No CV, , pulmonary, eye system symptoms on review. MENTAL STATUS EXAM: Oriented to herself at times to situation. Speech is difficult to understand, abstraction fair, computation impaired, language function intact. Attention span short. Mood and affect somewhat withdrawn. LABORATORY DATA: Reviewed, reflective of urinary tract infection. IMPRESSION: Unchanged from bipolar 1 disorder, mixed with psychotic features; anxiety disorder, unspecified; urinary tract infection, impulse control disorder, unspecified; cognitive disorder, unspecified. PLAN: Treat the UTI on Keflex. Continue Lexapro. Start Seroquel 12.5 mg make further adjustments as clinically indicated. MAN Dariana RUBY MD DR: ANKIT/kaylene JOB#: [id number] / [id number]
[2016-12-26 06:31] VITALS: BP 116/74
[2016-12-26] MEDS: ASPIRIN 81 MG TAB.CHEW PO SCH (08:01)
[2016-12-26] MEDS: ESCITALOPRAM 20 MG TABLET. PO SCH (08:01)
[2016-12-26] MEDS: QUEtiapine 25 MG TABLET. PO SCH ×3 (08:01→08:13)
[2016-12-26] MEDS: MAGNESIUM OXIDE 400 MG TABLET PO SCH (08:01)
[2016-12-26] MEDS: CEPHALEXIN 500 MG CAPSULE PO SCH ×2 (08:01→13:00)
[2016-12-26 08:02] VITALS: BP 116/74
[2016-12-26] MEDS: CYANOCOBALAMIN (VITAMIN B-12) 1,000 MCG TABLET. PO SCH (08:02)
[2016-12-26] MEDS: LOSARTAN 50 MG TABLET. PO SCH (08:02)
[2016-12-26] MEDS: hydroCHLOROthiazide 12.5 MG CAPSULE PO SCH (08:02)
[2016-12-26] MEDS: DEXTROMETHORPHAN HBR/QUINIDINE 1 CAPSULE. PO SCH (08:09)
[2016-12-26] MEDS: DANTROLENE SODIUM 25 MG CAPSULE PO SCH (08:09)
[2016-12-26] MEDS: LEVOTHYROXINE 125 MCG TABLET PO SCH (08:10)
[2016-12-26] MEDS: POTASSIUM CHLORIDE 10 MEQ CAPSULE.ER. PO SCH (08:10)
[2016-12-26] MEDS: LACOSAMIDE 50 MG TABLET PO SCH (08:11)
--- NOTE | 2016-12-26 08:30 | NUR ---
Behavior Intervention Response and Plan: BIRP Note: Behavior: Assumed Care of patient, patient located in Dining Room at shift change. Patient exhibited the following behavior Restless, Disorganized, Compliant. Brief assessment on rounds of vital signs, medication needs, lab studies, and pain. Treatment plan problems 1 & 2. Intervention: Patient assessed and the following interventions initiated safety checks 15 Minute Checks Cognitive Assessment , Head to toe Assessment , Medications. Response: After interactions and interventions patient responded in the following manner, Calm , Appropriate ,Compliant. Continue to assess behaviors and condition will continue to monitor throughout the shift as needed. Plan: Continue to monitor Master Treatment Plan for patient's progress toward short term goals of Decreased Agitation, Decreased Aggression, penitentiary goals to return to previous living setting vs placement. Continue to assess patient for changes in above assessment. Monitor for medication needs, pain, and safety concerns. Hourly rounding performed to ensure safe environment.
--- NOTE | 2016-12-26 08:32 | NUR ---
Pt called SW back and asked if SW could look for other placement. AILEEN had unit fax information on pt to [facility] on Monday at 4 pm. AILEEN followed up at 7:10 pm, pt still at [facility]. [facility] was a possibility at that time, however were requesting more information. AILEEN has no more information on what happened at this point regarding [facility] transfer. AILEEN will follow up this am with pt .
--- NOTE | 2016-12-26 08:42 | NUR ---
SW called pt back; he states he is concerned about the cost and wants to talk to someone in billing. Pt states if SW unable to have pt transferred he would take pt out AMA as he has been caring for her. Pt states he cannot keep paying high cost for medical care and the cost have been increasing. Pt reports pt neurologist has insisted on pt going to [facility] and see psychiatrist, He reports he knew they would send Mental health and she would be admitted and he wasn't for this idea due to the cost. AILEEN explained if pt is discharged it would be AMA, pt verbalized understanding. SW called billing number at [phone] still no answer. SW called Registration as well, Registration will call credit underwriter back.
[2016-12-26] MEDS ORDERED: lamoTRIgine 100 MG TABLET. PO SCH (09:00)
--- NOTE | 2016-12-26 09:07 | NUR ---
SW spoke with pt will be taking pt out AMA. SW called Dr. Workman, he asked that we call in pt new medications for a few weeks. SW will provide information for [facility] appt. as well for medication follow up.
--- NOTE | 2016-12-26 09:20 | NUR ---
AILEEN called pt Neurologist office unable to get pt in during the next couple of weeks earliest appt is February 16. AILEEN explained medications adjustments have been made and facility only calling in two weeks, office to follow up with pt . AILEEN will also provide information regarding [facility] outpt services Walk - in, if pt unable to follow up on Medications.
--- NOTE | 2016-12-26 10:08 | NUR ---
[facility] Social Work Discharge Planning Form Patient Name ANGIE PARRISH Admit Date: 12/23/16 DISCHARGE PLAN Discharge Destination: Home Care Assessment: Not Needed Level II Assessment: Not Needed Transportation: AMA Special Instructions/Notes: PCP: Dr. Hwang Psychiatrist: DISCHARGE TO HOME: Address: [address] [place] [address] [address] [facility] LANA García Responsible Libertarian: [facility] [place] phone number - Psychiatrist/Mental Health Follow Up [facility] Walk - in appt Primary Care Follow Up with Neurologist per 's request appt Mar 27 at 11:00 Contact Information *Dr. Han office notified of medication changes during hospitalization.*
[2016-12-26] MEDS ORDERED: QUET25TA5 PO (11:50)
[2016-12-26] MEDS ORDERED: LAMO100T5 PO (11:52)
[2016-12-26] MEDS ORDERED: LAMO25TA5 PO (11:58)
--- NOTE | 2016-12-26 13:30 | NUR ---
Discharge Note [facility] Patient is not currently a tobacco user. Follow up Appointment made: Date and Time 12/26/16 13:30 instructions and Social Work Discharge planning sheet sent to next level of care. [facility] contact Number for 24 hour support [phone] Discharge Packet Sent, and discusssed with patient and caregiver that includes Copies from the record of current medications with indications and frequencies, history and physical, Psychiatric Eval with reason and justification for admission, Lab values, Radiology results , follow up instructions for continuation of care, and Social Work discharge planning form: Yes Discharge Packet Faxed to Provider/Next Level of Care: Yes, Discharge Packet Faxed with discharge Order and Discharge diagnosis sent to: Dr. Han at [phone] Discharge Packet Discussed, and report Given to: Elmer Ann Discharge instruction sheet was included in the packet and sent with the patient upon discharge. Any Pending lab results can be obtained by calling [phone] Discharge Summary will be sent to next care provider when available. This includes the reason for admission, DC diagnosis, and next level of care recommendations.
--- NOTE | 2016-12-26 17:11 | OP ---
DATE OF SURGERY: 12/24/2016 PSYCHIATRIC PROGRESS NOTE This is a late entry for date of service 12/24/2016. These elements not covered in my initial note. INDICATIONS: The patient apparently is oriented to herself, only calm, cooperative with staff, at times a little labile. REVIEW OF SYSTEMS: Ambulation impaired. She has difficulty with expressive aphasia. No CV, , pulmonary, eye system symptoms on review. MENTAL STATUS: Oriented to herself and situation. Speech is difficult to understand. Abstraction fair, computation impaired, language function intact. Attention span short. No suicidal or homicidal ideation. Labs reviewed. IMPRESSION: Major neurocognitive disorder, Alzheimer, vascular with depression, delusion. Rest diagnoses unchanged. PLAN: Continue current psychotropics. Add Seroquel 12.5 mg twice a day. Adjust further as clinically indicated. This is a progress note dictated in addition to the previously dictated progress notes on the patient. MAN Dariana RUBY MD DR: ANKIT/kaylene JOB#: [id number] / [id number]
--- NOTE | 2016-12-27 00:50 | PN ---
DATE: 12/25/2016 This late entry for 12/25/2016 covers elements not covered in my initial note. SUBJECTIVE: The patient remains confused, but cooperative, feels she is at [facility], gets a little anxious, labile. REVIEW OF SYSTEMS: Ambulation impaired. No CV, , pulmonary, eye system symptoms on review. Reliability poor. MENTAL STATUS EXAM: Oriented to herself. Insight, judgment, recent memory is impaired. Language function intact. Attention span short. No suicidal or homicidal ideation. LABORATORY DATA: Reviewed. IMPRESSION: Major neurocognitive disorder, Alzheimer, vascular with depression, delusion, rest diagnoses unchanged. PLAN: Continue Seroquel 12.5 twice a day, 25 mg once a day, 50 mg at bedtime. Lamictal is 100 b.i.d. with increase to 100 in the morning, 125 mg at night, Lexapro continue 20 mg a day, Nuedexta 1 b.i.d. Adjust further as clinically indicated. MIKEY RUBY MD DR: ANKIT/kaylene JOB#: [id number] / [id number]
[2016-12-27 05:10] LABS: HEMOGLOBIN A1C 5.2 % (4.8-5.6)
--- NOTE | 2016-12-27 18:32 | DS ---
DATE OF DISCHARGE: 12/26/2016 DISCHARGE SUMMARY/PSYCHIATRIC PROGRESS NOTE This is late entry of 12/26/2016, covers elements not covered in my initial note. REASON FOR ADMISSION: Please refer to the admission history for details. Briefly, the patient is a 61-year-old female who lives at home with her and was referred from the [facility] on account of increased aggression, sundowning, wailing, visual hallucinations. This is within the context of her diagnosis of dementia/bipolar disorder. She does have a history of multiple sclerosis, seizure disorder, is deaf secondary to bacterial meningitis, uses the white board to communicate, all of which worsens her cognition and overall presentation. SIGNIFICANT FINDINGS AND CLINICAL COURSE: Following admission, the patient was seen daily individually by myself, followed medically per Dr. Larkin/Dr. Flood. I met with the patient daily individually. Adjustments were made in her psychotropics, Lamictal increased to 100 mg a.m., 125 in the p.m. She remained on Lexapro 20 mg a day, was on Nuedexta 1 b.i.d. Overall, the patient was doing a little better. Seroquel was adjusted as well. At this stage, her decided to discharge her against medical advice on account of some insurance issues and he was going to seek further hospitalization at a in network facility if needed. Prior to discharge on 12/26/2016, temperature 97.5, BP 116/74, pulse 61 and respirations 20. REVIEW OF SYSTEMS: Ambulation impaired, in her wheelchair. No CV, , pulmonary, eye system symptoms on review. Hard of hearing. MENTAL STATUS EXAMINATION: Oriented to herself. Insight, judgment, recent memory is impaired. Language function intact. Mood and affect less labile. LABORATORY DATA: Reviewed. FINAL DIAGNOSES: Major neurocognitive disorder, Alzheimer, vascular with depression, delusion, behavioral disturbance; bipolar 1 disorder, unspecified; anxiety disorder, unspecified. Rest diagnoses unchanged. DISCHARGE MEDICATIONS: Please refer to the MRAD. DISCHARGE INSTRUCTIONS: Outpatient psychiatric and medical followup as arranged at discharge at the local mental health center and with her primary care physician. Time for discharge day management greater than 30 minutes. I have discussed with social service staff prior to discharge. MAN Dariana RUBY MD DR: ANKIT/kaylene JOB#: [id number] / [id number]
== END 2016-12-26 13:30 | disposition home or self-care (01) | DRG 884 ==
LOC: GEROPSY 10:19
PROVIDERS: ADMIT Psychiatry & Neurology Psychiatry; ATTEND Psychiatry & Neurology Psychiatry
DX: F01.51 Vascular dementia, unspecified severity, with behavioral disturbance (principal); N39.0 Urinary tract infection, site not specified; F02.81 Dementia in other diseases classified elsewhere, unspecified severity, with behavioral disturbance; F31.60 Bipolar disorder, current episode mixed, unspecified; F31.77 Bipolar disorder, in partial remission, most recent episode mixed; E03.9 Hypothyroidism, unspecified; E78.5 Hyperlipidemia, unspecified; F41.9 Anxiety disorder, unspecified; F63.9 Impulse disorder, unspecified; G30.9 Alzheimer's disease, unspecified; I10 Essential (primary) hypertension; G40.909 Epilepsy, unspecified, not intractable, without status epilepticus; Z66 Do not resuscitate; Z86.61 Personal history of infections of the central nervous system; Z86.73 Personal history of transient ischemic attack (TIA), and cerebral infarction without residual deficits; Z88.2 Allergy status to sulfonamides
CPT/HCPCS: 36415; 80053; 80061; 80164; 82306; 82607; 83036; 83540; 83550; 83735; 84436; 84443; 84480; 85027; 86592; 86593